=== PATIENT | male | born 1940 | race Caucasian/White ===

== ENCOUNTER 2016-07-13 18:52 | Inpatient (IN) | payer MEDICARE, OTHER ==
--- NOTE | 2016-07-13 19:24 | History and Physical Report ---
History of Present Illnes - History of Present Illness Reason for Visit: Acute renal failure/pneumonia History of Present Illness: This is a 75 year old male well known to myself who I saw last week, and he was his usual garrulous self. Over the past few days, he has begun to stop buying his lottery tickets, stopped eating, and had been somewhat agitated in occasion. He was very withdrawn and appeared significantly more pallid and mildly dyspneic than he was last week. Labs showed acute renal failure with a BUN of 126, and a creatinine of 3.68, mild anemia (it is likely worse than the 10.4 on the chart due to his dehydration). His family state that he had some dark (black) stools earlier this week, and as a result, I am holding his Xarelto which he is on for his AF due to this. I suspect that after hydration, his hemoglobin may be much lower. 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: CVA, Other (Cataracts, macular degeneration) Psych: Depression, Other (Mild dementia) Musculoskeletal: Osteoarthritis ENT: Allergic rhinitis Renal/: Chronic renal insuff, Acute renal failure Endocrine: denies: Diabetes, Hyperthyroidism, Hypothyroidism Dermatology: Eczema - Past Surgical History Past Surgical History: None - Past Social History Smoke: Quit Alcohol: None Drugs: None Lives: Detention - Health Maintenance Health Maintenance: Cholesterol Influenza Vaccine: Current for this Influenza Season Pneumonia Vaccine: Yes Resuscitation Status: NCB - Unable to Obtain History Unable to Obtain: No Review of Systems - Review of Systems Constitutional: Weakness, Malaise. negative: Fever, Chills Eyes: negative: pain, vision change ENT: negative: Ear Pain Respiratory: Cough, Shortness of Breath (chronic). negative: Hemoptysis Cardiovascular: Orthopnea, Paroxysmal Noc. Dyspnea. negative: Chest Pain Gastrointestinal: Nausea, Melena. negative: Vomiting, Abdominal Pain Genitourinary: negative: Dysuria, Frequency Musculoskeletal: negative: Neck Pain, Shoulder Pain, Arm Pain, Back Pain Skin: negative: Rash Neurological: Weakness, Confusion. negative: Numbness, Seizures - Medications/Allergies Allergies/Adverse Reactions: Allergies Allergy/AdvReac Type Severity Reaction Status Date / Time No Known Allergies Allergy Verified 07/13/16 19:41 Exam - Exam General: Oriented to Person, Oriented to Place, Discheveled, Thin. No: Oriented to Time HEENT: Atraumatic, PERRLA, EOMI, Ptosis (mild), Anicteric Sclerae. No: Mouth Mucous membr. moist/[place] (dry), Photophobia Neck: No: Stridor, Rigidity Lungs: Wheezes, Prolonged Expiration, Decreased Air Movement Cardiovascular: Irregularly Irregular Murmur: Systolic Murmur Abdomen: Normal bowel sounds, Soft, No tenderness, No hepatospenomegaly, No masses. No: Distended, Rigid, Hepatomegaly Genitourinary: No: Right Inguinal Hernia, Left Inguinal Hernia Male Genitourinary: No: Scrotal Edema Female Genitourinary: No: Other Integumentary: Normal, Pale Extremities: Other (1+ edema) Neurological: Normal speech (but slowed) Psych/Mental Status: Other (slowed mentation) - Laboratory Results Laboratory Results: Labs show a right lower lobe pneumonia, Acute renal failure, anemia as noted in HPI and a clear u/a. Assessment/Plan - Assessment/Plan (1) Right lower lobe pneumonia Status: Acute Current Visit: Yes Qualifiers: Pneumonia type: due to unspecified organism Qualified Code(s): J18.1 - Lobar pneumonia, unspecified organism Assessment: Start IV rocephin and azithromycin/nebulizer treatments (2) Acute renal failure Status: Acute Current Visit: Yes Assessment: Due to dehydration Plan: Start IV NS, monitor for any signs of fluid overload (3) Atrial fibrillation Status: Acute Current Visit: Yes Assessment: Chronic (4) GI bleed Status: Acute Current Visit: Yes Assessment: Based on history and relatively low HgB or 10.4 in a patient with significant hemoconcentration based on exam and history Plan: Recheck CBC in am [facility] all stools (5) Anticoagulation adequate with anticoagulant therapy Status: Acute Current Visit: Yes Assessment: Will hold Xarelto in the face of a suspected GI bleed (6) Congestive heart failure (CHF) Status: Acute Current Visit: Yes Assessment: Currently without evidence of fluid overload (7) Anemia Status: Acute Current Visit: Yes Qualifiers: Anemia type: iron deficiency Iron deficiency anemia type: chronic blood loss Qualified Code(s): 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
[2016-07-13] MEDS ORDERED: HYDROXYZINE HCL 25 MG TABLET PO PRN (20:04)
[2016-07-13] MEDS ORDERED: SALINE FLUSH 10 ML DISP.SYRIN IVF ONE (20:22)
[2016-07-13] MEDS ORDERED: ONDANSETRON HCL 4 MG TAB.RAPDIS PO PRN (20:26)
[2016-07-13] MEDS ORDERED: LOPERAMIDE HCL 2 MG CAPSULE PO PRN (20:26)
[2016-07-13] MEDS ORDERED: ACETAMINOPHEN 325 MG TABLET PO PRN (20:26)
[2016-07-13] MEDS ORDERED: 0.9 % SODIUM CHLORIDE 50 ML IV ONE (21:18)
[2016-07-13] MEDS ORDERED: cefTRIAXone SODIUM 1 GM VIAL ONE (21:18)
[2016-07-13] MEDS: cefTRIAXone SODIUM 1 GM in 0.9 % SODIUM CHLORIDE 50 ML IV SCH (21:22)
[2016-07-13] MEDS: 0.9 % SODIUM CHLORIDE 1,000 ML IV SCH (21:26)
[2016-07-13] MEDS ORDERED: AZITHROMYCIN 500 MG VIAL IV ONE (21:57)
[2016-07-13] MEDS ORDERED: 0.9 % SODIUM CHLORIDE 250 ML IV ONE (21:57)
[2016-07-13] MEDS: DONEPEZIL HCL 5 MG TABLET PO SCH (22:04)
[2016-07-13] MEDS: CARVEDILOL 6.25 MG TABLET PO SCH (22:04)
[2016-07-13] MEDS: SIMVASTATIN 40 MG TABLET PO SCH (22:05)
[2016-07-13] MEDS: AZITHROMYCIN 250 MG in 0.9 % SODIUM CHLORIDE 250 ML IV SCH (22:06)
[2016-07-13] MEDS: IPRATROPIUM/ALBUTEROL SULFATE 3 ML AMPUL.NEB NEB SCH (22:13)
[2016-07-13 22:14] VITALS: BMI 23.9
[2016-07-14] MEDS: IPRATROPIUM/ALBUTEROL SULFATE 3 ML AMPUL.NEB NEB SCH ×4 (00:35→18:49)
[2016-07-14] MEDS ORDERED: SALINE FLUSH 10 ML DISP.SYRIN IVF ONE (04:46)
[2016-07-14] MEDS: 0.9 % SODIUM CHLORIDE 1,000 ML IV SCH ×4 (06:24→21:53)
[2016-07-14 07:12] LABS: BASOPHILS % 0.2 (0.0-1.5); EOSINOPHILS % 0.5 % (0.0-6.8); LYMPHOCYTES # 1.1 # k/uL (0.6-4.0); MEAN CORPUSCULAR HEMOGLOBIN 26.3 pg (28.0-34.0); MONOCYTES # 0.8 # k/uL (0.0-0.9); MONOCYTES % 6.6 % (0.0-11.0); NEUTROPHILS # 9.9 # k/uL (1.4-7.7)
--- NOTE | 2016-07-14 08:26 | Inpatient Progress Note ---
Subjective - Required Recertification Statement I anticipate X number of days because-include discharge plan: 3 - Review of Systems Events since last encounter: Dylan is improved today. He ate some breakfast, and is more alert He continues to have diarrhea, however it is not black in color. He is less pale. His granddaughter spent the night with him last night. He is afebrile. His potassium has dropped a bit, his hemoglobin also dropped with hydration. General: Fatigue, Malaise, Appetite (slightly improved). Denies: Chills, Night Sweats HEENT: Denies: Head Aches Pulmonary: Cough Cardiovascular: Denies: Chest Pain, Palpitations, Orthopnea Gastrointestinal: Diarrhea. Denies: Nausea, Vomiting Genitourinary: Denies: Dysuria Musculoskeletal: Denies: Neck Pain, Shoulder Pain Neurological: Weakness, Confusion (improved slightly) Objective - Exam Vitals and I&O: Vital Signs Temp 97.7 F 07/14/16 05:49 Pulse 60 07/14/16 07:00 Resp 20 07/14/16 07:00 BP 92/37 07/14/16 05:49 Pulse Ox 98 07/14/16 05:49 Intake & Output 07/13/16 07/13/16 07/14/16 11:59 23:59 11:59 Intake Total 1250 Output Total 200 4 Balance -200 1246 Weight 72.575 kg Intake: IV 1250 Right Forearm 1250 Output: Urine 200 Stool 4 Other: Voiding Method Urinal Urinal # Voids 2 General: Oriented to Person, Oriented to Place, Cooperative, No acute distress, Discheveled HEENT: Atraumatic, PERRLA, EOMI, Ptosis. No: Mouth Mucous membr. moist/[place] ( dry) Neck: Supple, No JVD Lungs: Wheezes (scant), Prolonged Expiration Abdomen: Normal bowel sounds, Soft, No tenderness, No masses Extremities: No clubbing, No cyanosis, No edema Skin: Pale Neurological: Generalized Weakness Psych/Mental Status: Other (still sleepy) - Results Results: Laboratory Results WBC 12.30 K/ul (4.00-12.00) H 07/14/16 06:55 RBC 3.60 M/ul (3.90-5.20) L 07/14/16 06:55 Hgb 9.5 g/dL (12.0-18.0) L 07/14/16 06:55 Hct 28.8 % (37.0-53.0) L 07/14/16 06:55 MCV 79.8 fl (80.0-100.0) L 07/14/16 06:55 MCH 26.3 pg (28.0-34.0) L 07/14/16 06:55 MCHC 32.9 g/dL (30.0-36.0) 07/14/16 06:55 RDW 12.9 % (11.3-14.3) 07/14/16 06:55 Plt Count 188 K/mm3 (130-400) 07/14/16 06:55 Neut % (Auto) 80.4 % (39.0-79.0) H 07/14/16 06:55 Lymph % (Auto) 9.0 % (16.0-50.0) L 07/14/16 06:55 [place] % (Auto) 6.6 % (0.0-11.0) 07/14/16 06:55 Eos % (Auto) 0.5 % (0.0-6.8) 07/14/16 06:55 Baso % (Auto) 0.2 (0.0-1.5) 07/14/16 06:55 Neut # 9.9 # k/uL (1.4-7.7) H 07/14/16 06:55 Lymph # 1.1 # k/uL (0.6-4.0) 07/14/16 06:55 [place] # 0.8 # k/uL (0.0-0.9) 07/14/16 06:55 Eos # 0.1 # k/uL (0.0-0.6) 07/14/16 06:55 Baso # 0.0 # k/uL (0.0-0.5) 07/14/16 06:55 Reactive Lymphs % 3.2 % (0.0-5.0) 07/14/16 06:55 Reactive Lymphs # 0.4 # k/uL (0.0-0.8) 07/14/16 06:55 Sodium 139 mmol/L (136-145) 07/14/16 06:55 Potassium 3.1 mmol/L (3.5-5.0) L 07/14/16 06:55 Chloride 105 mmol/L (98-110) 07/14/16 06:55 Carbon Dioxide 27 mmol/L (20-32) 07/14/16 06:55 BUN 112 mg/dL (10-26) H 07/14/16 06:55 Creatinine 2.4 mg/dL (0.4-1.5) H 07/14/16 06:55 Estimated Creat Clear 26 07/14/16 06:55 Est GFR ( Amer) 34 (60-) L 07/14/16 06:55 Est GFR (Non-Af Amer) 28 (60-) L 07/14/16 06:55 Glucose 153 mg/dL (70-99) H 07/14/16 06:55 Calcium 8.8 mg/dL (8.5-10.5) 07/14/16 06:55 Total Bilirubin 0.3 mg/dL (0.2-1.2) 07/14/16 06:55 AST 18 U/L (0-41) 07/14/16 06:55 ALT 16 U/L (0-45) 07/14/16 06:55 Alkaline Phosphatase 49 U/L (46-116) 07/14/16 06:55 Total Protein 6.3 g/dL (6.0-8.5) 07/14/16 06:55 Albumin 3.3 g/dL (3.0-5.5) 07/14/16 06:55 Assessment/Plan - Assessment/Plan (1) Right lower lobe pneumonia Status: Acute Current Visit: Yes Qualifiers: Pneumonia type: due to unspecified organism Qualified Code(s): J18.1 - Lobar pneumonia, unspecified organism Assessment: Improved Plan: Check CXR/continue curent antibiotics/nebulizer treatments (2) Acute renal failure Status: Acute Current Visit: Yes Assessment: Improved with creatinine dropping from 3.68 to 2.4 today Plan: Continue hydration, watch for fluid overload due to history of CHF (3) Atrial fibrillation Status: Acute Current Visit: Yes Assessment: Chronic (4) GI bleed Status: Acute Current Visit: Yes Assessment: Still awaiting guiac on stools (5) Anticoagulation adequate with anticoagulant therapy Status: Acute Current Visit: Yes Assessment: Holding due to suspicion of GI bleed (6) Congestive heart failure (CHF) Status: Acute Current Visit: Yes Assessment: Compensated (7) Anemia Status: Acute Current Visit: Yes Qualifiers: Anemia type: iron deficiency Iron deficiency anemia type: chronic blood loss Qualified Code(s): D50.0 - Iron deficiency anemia secondary to blood loss (chronic) Assessment: Continue iron supplementation (8) Diarrhea Status: Acute Current Visit: Yes Assessment: Ongoing Plan: Check GI pathogen panel
[2016-07-14] MEDS: DONEPEZIL HCL 5 MG TABLET PO SCH (10:30)
[2016-07-14] MEDS: FERROUS SULFATE 325 MG TABLET PO SCH ×2 (10:30→18:55)
[2016-07-14] MEDS: CARVEDILOL 6.25 MG TABLET PO SCH ×2 (10:30→22:06)
[2016-07-14] MEDS: LISINOPRIL 5 MG TABLET PO SCH (10:31)
[2016-07-14] MEDS: POTASSIUM CHLORIDE 10 MEQ TABLET.ER PO SCH ×2 (10:31→22:06)
--- NOTE | 2016-07-14 14:36 | Diagnostic Imaging Report ---
[facility] [address] [facility].[address] [id number] Report Submission Date: Jul 14, 2016 1:20:35 PM AUTO DEALER Patient Study Name: ROBERTO MOBLEY Date: Jul 14, 2016 9:26:08 AM AUTO DEALER Modality Type: CR Gender: M Description: CHEST : 38 Institution: [facility] Physician [facility]/MED SURG EXAMINATION: Chest, two views. HISTORY: Right lower lobe pneumonia follow-up. FINDINGS: Comparison is made to exam dated 08/31/2008. The heart size is normal. There is minimal right basilar infiltrate present. There is mild blunting the right costophrenic angle suggesting small effusion. Left lung is clear. IMPRESSION: 1. Minimal right basilar infiltrate with trace right effusion Electronically signed on Jul 14, 2016 1:20:35 PM AUTO DEALER by: Tristin CARRILLO
[2016-07-14] MEDS: cefTRIAXone SODIUM 1 GM in 0.9 % SODIUM CHLORIDE 50 ML IV SCH (21:07)
[2016-07-14] MEDS: AZITHROMYCIN 250 MG in 0.9 % SODIUM CHLORIDE 250 ML IV SCH (21:53)
[2016-07-14] MEDS: SIMVASTATIN 40 MG TABLET PO SCH (22:06)
[2016-07-15] MEDS: IPRATROPIUM/ALBUTEROL SULFATE 3 ML AMPUL.NEB NEB SCH ×4 (01:09→18:13)
[2016-07-15] MEDS: 0.9 % SODIUM CHLORIDE 1,000 ML IV SCH ×5 (06:17→23:18)
[2016-07-15 07:03] LABS: MEAN CORPUSCULAR HEMOGLOBIN 25.7 pg (28.0-34.0)
[2016-07-15 07:33] LABS: eGFR (African) > 60; eGFR (Non-African) 57
--- NOTE | 2016-07-15 08:00 | Inpatient Progress Note ---
Subjective - Required Recertification Statement I anticipate X number of days because-include discharge plan: 2 - Review of Systems Events since last encounter: Dylan has continued to improve every day. He continues to have diarrhea. He is experiencing no evidence of fluid overload. He is more alert and oriented and is up and eating breakfast this morning. Gastrointestinal panel and guiac tests are still pending. General: Denies: Chills, Night Sweats HEENT: Denies: Head Aches Pulmonary: Dyspnea, Cough Cardiovascular: Denies: Chest Pain, Palpitations Gastrointestinal: Diarrhea. Denies: Nausea, Vomiting Genitourinary: Denies: Dysuria, Frequency Musculoskeletal: Denies: Neck Pain Neurological: Weakness, Confusion (improved) Objective - Exam Vitals and I&O: Vital Signs Temp 97.6 F 07/15/16 06:00 Pulse 52 L 07/15/16 06:00 Resp 20 07/15/16 06:00 BP 95/41 07/15/16 06:00 Pulse Ox 99 07/15/16 06:00 Intake & Output 07/14/16 07/14/16 07/15/16 11:59 23:59 11:59 Intake Total 1370 1400 Output Total 4 800 Balance 1366 600 Weight 72.575 kg Intake: IV 1250 Right Forearm 1250 Oral 120 1400 Output: Urine 800 Stool 4 Other: Voiding Method Urinal Urinal # Voids 2 2 2 # Bowel Movements 3 General: Alert, Oriented to Person, Oriented to Place, Thin HEENT: Atraumatic, PERRLA, EOMI Neck: Supple Lungs: Clear to auscultation, Decreased Air Movement Cardiovascular: Irregularly Irregular Abdomen: Normal bowel sounds, Soft, No tenderness Extremities: No clubbing, No cyanosis, No edema Skin: Normal, [place] Neurological: Normal gait Psych/Mental Status: Mental status NL (at baseline) - Results Results: Laboratory Results WBC 13.20 K/ul (4.00-12.00) H 07/15/16 06:45 RBC 3.33 M/ul (3.90-5.20) L 07/15/16 06:45 Hgb 8.6 g/dL (12.0-18.0) L 07/15/16 06:45 Hct 27.3 % (37.0-53.0) L 07/15/16 06:45 MCV 82.1 fl (80.0-100.0) 07/15/16 06:45 MCH 25.7 pg (28.0-34.0) L 07/15/16 06:45 MCHC 31.3 g/dL (30.0-36.0) 07/15/16 06:45 RDW 13.0 % (11.3-14.3) 07/15/16 06:45 Plt Count 184 K/mm3 (130-400) 07/15/16 06:45 Neut % (Auto) 80.4 % (39.0-79.0) H 07/14/16 06:55 Lymph % (Auto) 9.0 % (16.0-50.0) L 07/14/16 06:55 [place] % (Auto) 6.6 % (0.0-11.0) 07/14/16 06:55 Eos % (Auto) 0.5 % (0.0-6.8) 07/14/16 06:55 Baso % (Auto) 0.2 (0.0-1.5) 07/14/16 06:55 Neut # 9.9 # k/uL (1.4-7.7) H 07/14/16 06:55 Lymph # 1.1 # k/uL (0.6-4.0) 07/14/16 06:55 [place] # 0.8 # k/uL (0.0-0.9) 07/14/16 06:55 Eos # 0.1 # k/uL (0.0-0.6) 07/14/16 06:55 Baso # 0.0 # k/uL (0.0-0.5) 07/14/16 06:55 Reactive Lymphs % 3.2 % (0.0-5.0) 07/14/16 06:55 Reactive Lymphs # 0.4 # k/uL (0.0-0.8) 07/14/16 06:55 Sodium 145 mmol/L (136-145) 07/15/16 06:45 Potassium 3.4 mmol/L (3.5-5.0) L 07/15/16 06:45 Chloride 110 mmol/L (98-110) 07/15/16 06:45 Carbon Dioxide 28 mmol/L (20-32) 07/15/16 06:45 BUN 66 mg/dL (10-26) H 07/15/16 06:45 Creatinine 1.3 mg/dL (0.4-1.5) 07/15/16 06:45 Estimated Creat Clear 49 07/15/16 06:45 Est GFR ( Amer) > 60 (60-) 07/15/16 06:45 Est GFR (Non-Af Amer) 57 (60-) L 07/15/16 06:45 Glucose 112 mg/dL (70-99) H 07/15/16 06:45 Calcium 9.0 mg/dL (8.5-10.5) 07/15/16 06:45 Total Bilirubin 0.3 mg/dL (0.2-1.2) 07/14/16 06:55 AST 18 U/L (0-41) 07/14/16 06:55 ALT 16 U/L (0-45) 07/14/16 06:55 Alkaline Phosphatase 49 U/L (46-116) 07/14/16 06:55 Total Protein 6.3 g/dL (6.0-8.5) 07/14/16 06:55 Albumin 3.3 g/dL (3.0-5.5) 07/14/16 06:55 Assessment/Plan - Assessment/Plan (1) Right lower lobe pneumonia Status: Acute Current Visit: Yes Qualifiers: Pneumonia type: due to unspecified organism Qualified Code(s): J18.1 - Lobar pneumonia, unspecified organism Assessment: improved Plan: Continue current treatment (2) Acute renal failure Status: Acute Current Visit: Yes Assessment: improved with BUN now 66/creatinine 1.3 (3) Atrial fibrillation Status: Acute Current Visit: Yes Assessment: Chronic (4) GI bleed Status: Acute Current Visit: Yes Assessment: holding Xarelto currently (5) Anticoagulation adequate with anticoagulant therapy Status: Acute Current Visit: Yes Assessment: holding due to suspected GI bleed Plan: Nursing to try to get gastrointestinal panel (6) Congestive heart failure (CHF) Status: Acute Current Visit: Yes Assessment: Current well compensated Plan: Holding diuretic due to dehydration (7) Anemia Status: Acute Current Visit: Yes Qualifiers: Anemia type: iron deficiency Iron deficiency anemia type: chronic blood loss Qualified Code(s): D50.0 - Iron deficiency anemia secondary to blood loss (chronic) Assessment: Worsened with hydration Plan: Will check CBC in the am, he may need transfusion (8) Diarrhea Status: Acute Current Visit: Yes Assessment: Gastointestinal pathogen panel pending
[2016-07-15] MEDS: CARVEDILOL 6.25 MG TABLET PO SCH ×2 (09:47→20:43)
[2016-07-15] MEDS: POTASSIUM CHLORIDE 10 MEQ TABLET.ER PO SCH ×2 (09:47→20:43)
[2016-07-15] MEDS: LISINOPRIL 5 MG TABLET PO SCH (09:47)
[2016-07-15] MEDS: FERROUS SULFATE 325 MG TABLET PO SCH ×2 (09:49→17:44)
[2016-07-15] MEDS ORDERED: SALINE FLUSH 10 ML DISP.SYRIN IVF ONE ×2 (10:29→13:14)
[2016-07-15] MEDS: SIMVASTATIN 40 MG TABLET PO SCH (20:43)
[2016-07-15] MEDS: DONEPEZIL HCL 5 MG TABLET PO SCH (20:43)
[2016-07-15] MEDS: cefTRIAXone SODIUM 1 GM in 0.9 % SODIUM CHLORIDE 50 ML IV SCH (20:44)
[2016-07-15] MEDS: AZITHROMYCIN 250 MG in 0.9 % SODIUM CHLORIDE 250 ML IV SCH (21:57)
[2016-07-16] MEDS: IPRATROPIUM/ALBUTEROL SULFATE 3 ML AMPUL.NEB NEB SCH ×4 (06:17→18:02)
[2016-07-16 06:33] LABS: MEAN CORPUSCULAR HEMOGLOBIN 25.8 pg (28.0-34.0)
[2016-07-16] MEDS: 0.9 % SODIUM CHLORIDE 1,000 ML IV SCH ×3 (06:42→22:47)
[2016-07-16 07:26] LABS: eGFR (African) > 60; eGFR (Non-African) > 60
[2016-07-16] MEDS: CARVEDILOL 6.25 MG TABLET PO SCH ×2 (08:52→21:06)
[2016-07-16] MEDS: LISINOPRIL 5 MG TABLET PO SCH (08:52)
[2016-07-16] MEDS: POTASSIUM CHLORIDE 10 MEQ TABLET.ER PO SCH ×2 (08:52→21:06)
[2016-07-16] MEDS: FERROUS SULFATE 325 MG TABLET PO SCH ×2 (08:53→17:52)
--- NOTE | 2016-07-16 11:02 | Inpatient Progress Note ---
Subjective - Required Recertification Statement I anticipate X number of days because-include discharge plan: 2 - Review of Systems Events since last encounter: Dylan is breathing well. He has no new c/o. His renal labs continue to recover. I decreased his fluids to TKO last night as he was starting to get some pulmonary congestion. General: Denies: Chills HEENT: Denies: Head Aches, Visual Changes Pulmonary: Dyspnea. Denies: Cough Cardiovascular: Denies: Chest Pain Gastrointestinal: Diarrhea. Denies: Nausea, Vomiting Genitourinary: Denies: Dysuria Musculoskeletal: Denies: Neck Pain, Shoulder Pain Neurological: Weakness, Confusion Objective - Exam Vitals and I&O: Vital Signs Temp 97.7 F 07/16/16 05:44 Pulse 69 07/16/16 07:00 Resp 16 07/16/16 07:00 BP 98/51 07/16/16 05:44 Pulse Ox 97 07/16/16 05:44 Intake & Output 07/15/16 07/15/16 07/16/16 11:59 23:59 11:59 Intake Total 740 1230 Output Total 225 400 Balance 740 1005 -400 Weight 72.575 kg Intake: IV 500 750 Right Antecubital 500 750 Oral 240 480 Output: Urine 225 400 Other: Voiding Method Urinal Urinal Urinal # Voids 2 2 # Bowel Movements 1 General: Alert, Oriented to Person, Oriented to Place HEENT: Atraumatic, PERRLA, EOMI Neck: Supple, No JVD Lungs: Wheezes, Prolonged Expiration, Decreased Air Movement Cardiovascular: Irregularly Irregular Abdomen: Normal bowel sounds, Soft, No tenderness Extremities: No clubbing, No cyanosis Skin: Normal, Pale Neurological: Normal speech Psych/Mental Status: Other (at baseline) - Results Results: Laboratory Results WBC 12.50 K/ul (4.00-12.00) H 07/16/16 06:15 RBC 3.59 M/ul (3.90-5.20) L 07/16/16 06:15 Hgb 9.3 g/dL (12.0-18.0) L 07/16/16 06:15 Hct 30.0 % (37.0-53.0) L 07/16/16 06:15 MCV 83.5 fl (80.0-100.0) 07/16/16 06:15 MCH 25.8 pg (28.0-34.0) L 07/16/16 06:15 MCHC 30.9 g/dL (30.0-36.0) 07/16/16 06:15 RDW 13.1 % (11.3-14.3) 07/16/16 06:15 Plt Count 175 K/mm3 (130-400) 07/16/16 06:15 Neut % (Auto) 80.4 % (39.0-79.0) H 07/14/16 06:55 Lymph % (Auto) 9.0 % (16.0-50.0) L 07/14/16 06:55 [place] % (Auto) 6.6 % (0.0-11.0) 07/14/16 06:55 Eos % (Auto) 0.5 % (0.0-6.8) 07/14/16 06:55 Baso % (Auto) 0.2 (0.0-1.5) 07/14/16 06:55 Neut # 9.9 # k/uL (1.4-7.7) H 07/14/16 06:55 Lymph # 1.1 # k/uL (0.6-4.0) 07/14/16 06:55 [place] # 0.8 # k/uL (0.0-0.9) 07/14/16 06:55 Eos # 0.1 # k/uL (0.0-0.6) 07/14/16 06:55 Baso # 0.0 # k/uL (0.0-0.5) 07/14/16 06:55 Reactive Lymphs % 3.2 % (0.0-5.0) 07/14/16 06:55 Reactive Lymphs # 0.4 # k/uL (0.0-0.8) 07/14/16 06:55 Sodium 143 mmol/L (136-145) 07/16/16 06:15 Potassium 3.7 mmol/L (3.5-5.0) 07/16/16 06:15 Chloride 111 mmol/L (98-110) H 07/16/16 06:15 Carbon Dioxide 29 mmol/L (20-32) 07/16/16 06:15 BUN 40 mg/dL (10-26) H 07/16/16 06:15 Creatinine 1.0 mg/dL (0.4-1.5) 07/16/16 06:15 Estimated Creat Clear 64 07/16/16 06:15 Est GFR ( Amer) > 60 (60-) 07/16/16 06:15 Est GFR (Non-Af Amer) > 60 (60-) 07/16/16 06:15 Glucose 110 mg/dL (70-99) H 07/16/16 06:15 Calcium 8.6 mg/dL (8.5-10.5) 07/16/16 06:15 Total Bilirubin 0.3 mg/dL (0.2-1.2) 07/14/16 06:55 AST 18 U/L (0-41) 07/14/16 06:55 ALT 16 U/L (0-45) 07/14/16 06:55 Alkaline Phosphatase 49 U/L (46-116) 07/14/16 06:55 Total Protein 6.3 g/dL (6.0-8.5) 07/14/16 06:55 Albumin 3.3 g/dL (3.0-5.5) 07/14/16 06:55 Stool Guaiac Test Negative (NEGATIVE) 07/15/16 18:35 Assessment/Plan - Assessment/Plan (1) Right lower lobe pneumonia Status: Acute Current Visit: Yes Qualifiers: Pneumonia type: due to unspecified organism Qualified Code(s): J18.1 - Lobar pneumonia, unspecified organism Plan: Improve (2) Acute renal failure Status: Acute Current Visit: Yes Plan: Improved (3) Atrial fibrillation Status: Acute Current Visit: Yes Assessment: Continue to hold Xarelto (4) GI bleed Status: Acute Current Visit: Yes Assessment: Continue to guiac stools (5) Anticoagulation adequate with anticoagulant therapy Status: Acute Current Visit: Yes Assessment: Hold Xarelto (6) Congestive heart failure (CHF) Status: Acute Current Visit: Yes Assessment: Still holding diuretics due to dehydration (7) Anemia Status: Acute Current Visit: Yes Qualifiers: Anemia type: iron deficiency Iron deficiency anemia type: chronic blood loss Qualified Code(s): D50.0 - Iron deficiency anemia secondary to blood loss (chronic) Assessment: HgB is improved today (8) Diarrhea Status: Acute Current Visit: Yes Assessment: Awaiting gastrointestinal pathogen panel
[2016-07-16] MEDS ORDERED: NYSTATIN POWDER BOTTLE TP ONE (12:49)
[2016-07-16] MEDS ORDERED: NYSTATIN CREAM 100,000 UNIT/GM 15GM TP SCH (13:00)
[2016-07-16] MEDS: NYSTATIN POWDER BOTTLE TP SCH ×2 (17:53→21:07)
[2016-07-16] MEDS: SIMVASTATIN 40 MG TABLET PO SCH (21:06)
[2016-07-16] MEDS: DONEPEZIL HCL 5 MG TABLET PO SCH (21:06)
[2016-07-16] MEDS: cefTRIAXone SODIUM 1 GM in 0.9 % SODIUM CHLORIDE 50 ML IV SCH (21:09)
[2016-07-16] MEDS: AZITHROMYCIN 250 MG in 0.9 % SODIUM CHLORIDE 250 ML IV SCH (22:42)
[2016-07-17] MEDS: IPRATROPIUM/ALBUTEROL SULFATE 3 ML AMPUL.NEB NEB SCH ×4 (03:16→18:00)
[2016-07-17 07:07] LABS: MEAN CORPUSCULAR HEMOGLOBIN 26.1 pg (28.0-34.0)
[2016-07-17 07:19] LABS: eGFR (African) > 60; eGFR (Non-African) > 60
[2016-07-17] MEDS ORDERED: 0.9 % SODIUM CHLORIDE 500 ML IV ONE (10:47)
[2016-07-17] MEDS: CARVEDILOL 6.25 MG TABLET PO SCH ×2 (10:49→21:14)
[2016-07-17] MEDS: LISINOPRIL 5 MG TABLET PO SCH (10:50)
[2016-07-17] MEDS: POTASSIUM CHLORIDE 10 MEQ TABLET.ER PO SCH ×2 (10:52→21:20)
[2016-07-17] MEDS: NYSTATIN POWDER BOTTLE TP SCH ×4 (10:52→21:21)
[2016-07-17 11:41] LABS: ADENOVIRUS F 40/41 Not Detected (Not Detected); ASTROVIRUS Not Detected (Not Detected); C. DIFFICILE (TOXIN A/B) Not Detected (Not Detected); CRYPTOSPORIDIUM Not Detected (Not Detected); CYCLOSPORA CAYETANENSIS Not Detected (Not Detected); ENTAMOEBA HISTOLYTICA Not Detected (Not Detected); GIARDIA LAMBLIA Not Detected (Not Detected); ROTAVIRUS A Not Detected (Not Detected); SAPOVIRUS Not Detected (Not Detected); VIBRIO CHOLERAE Not Detected (Not Detected)
[2016-07-17] MEDS: FERROUS SULFATE 325 MG TABLET PO SCH ×2 (11:47→18:51)
--- NOTE | 2016-07-17 12:44 | Diagnostic Imaging Report ---
[facility] [id number] [facility].[address] [address] Report Submission Date: Jul 17, 2016 12:34:49 PM OB/GYN PHYSICIAN Patient Study Name: ROBERTO MOBLEY Date: Jul 17, 2016 12:15:22 PM OB/GYN PHYSICIAN Modality Type: CR Gender: M Description: CHEST : 38 Institution: [facility] Physician: SILVANO EMERSON Portable chest History: Pneumonia Findings: Mild bilateral diffuse interstitial infiltrate or edema, small pleural effusions, and pulmonary vascular congestion have developed since the prior exam. Heart size is upper normal. Atherosclerotic calcifications are observed. Impression: Interval development of congestive heart failure. Electronically signed on Jul 17, 2016 12:34:49 PM OB/GYN PHYSICIAN by: Kevin CARRILLO
[2016-07-17] MEDS: 0.9 % SODIUM CHLORIDE 1,000 ML IV SCH ×2 (14:15→18:15)
--- NOTE | 2016-07-17 16:51 | Inpatient Progress Note ---
Subjective - Required Recertification Statement I anticipate X number of days because-include discharge plan: 2 - Review of Systems Events since last encounter: Dylan is eating better. He is breathing well. We still have not received his gastrointestinal panel back. His guiacs have been negative so far. General: Denies: Chills, Night Sweats HEENT: Denies: Head Aches Pulmonary: Dyspnea. Denies: Cough Cardiovascular: Denies: Chest Pain, Palpitations Gastrointestinal: Diarrhea. Denies: Nausea Genitourinary: Denies: Dysuria Musculoskeletal: Denies: Neck Pain, Shoulder Pain Neurological: Weakness. Denies: Confusion Objective - Exam Vitals and I&O: Vital Signs Temp 97.9 F 07/17/16 13:29 Pulse 75 07/17/16 13:29 Resp 20 07/17/16 13:29 BP 104/57 07/17/16 13:29 Pulse Ox 97 07/17/16 13:29 Intake & Output 07/16/16 07/17/16 07/17/16 23:59 11:59 23:59 Intake Total 840 240 400 Output Total 255 Balance 840 240 145 Intake: Oral 840 240 400 Output: Urine 255 Other: Voiding Method Urinal # Voids 4 # Bowel Movements 2 2 General: Alert, Oriented to Person HEENT: Atraumatic, PERRLA, Mouth Mucous membr. moist/Queets Neck: Supple, No JVD Lungs: Wheezes (scaant), Decreased Air Movement Cardiovascular: Irregularly Irregular Abdomen: Normal bowel sounds, Soft, No tenderness, No hepatospenomegaly Extremities: No clubbing, No cyanosis, No edema Skin: Normal, Pale Neurological: Normal speech Psych/Mental Status: Mental status NL - Results Results: Laboratory Results WBC 12.70 K/ul (4.00-12.00) H 07/17/16 06:25 RBC 3.48 M/ul (3.90-5.20) L 07/17/16 06:25 Hgb 9.1 g/dL (12.0-18.0) L 07/17/16 06:25 Hct 29.1 % (37.0-53.0) L 07/17/16 06:25 MCV 83.7 fl (80.0-100.0) 07/17/16 06:25 MCH 26.1 pg (28.0-34.0) L 07/17/16 06:25 MCHC 31.2 g/dL (30.0-36.0) 07/17/16 06:25 RDW 13.0 % (11.3-14.3) 07/17/16 06:25 Plt Count 169 K/mm3 (130-400) 07/17/16 06:25 Neut % (Auto) 80.4 % (39.0-79.0) H 07/14/16 06:55 Lymph % (Auto) 9.0 % (16.0-50.0) L 07/14/16 06:55 [place] % (Auto) 6.6 % (0.0-11.0) 07/14/16 06:55 Eos % (Auto) 0.5 % (0.0-6.8) 07/14/16 06:55 Baso % (Auto) 0.2 (0.0-1.5) 07/14/16 06:55 Neut # 9.9 # k/uL (1.4-7.7) H 07/14/16 06:55 Lymph # 1.1 # k/uL (0.6-4.0) 07/14/16 06:55 [place] # 0.8 # k/uL (0.0-0.9) 07/14/16 06:55 Eos # 0.1 # k/uL (0.0-0.6) 07/14/16 06:55 Baso # 0.0 # k/uL (0.0-0.5) 07/14/16 06:55 Reactive Lymphs % 3.2 % (0.0-5.0) 07/14/16 06:55 Reactive Lymphs # 0.4 # k/uL (0.0-0.8) 07/14/16 06:55 Sodium 141 mmol/L (136-145) 07/17/16 06:25 Potassium 3.1 mmol/L (3.5-5.0) L 07/17/16 06:25 Chloride 114 mmol/L (98-110) H 07/17/16 06:25 Carbon Dioxide 25 mmol/L (20-32) 07/17/16 06:25 BUN 19 mg/dL (10-26) 07/17/16 06:25 Creatinine 0.8 mg/dL (0.4-1.5) 07/17/16 06:25 Estimated Creat Clear 80 07/17/16 06:25 Est GFR ( Amer) > 60 (60-) 07/17/16 06:25 Est GFR (Non-Af Amer) > 60 (60-) 07/17/16 06:25 Glucose 108 mg/dL (70-99) H 07/17/16 06:25 Calcium 8.5 mg/dL (8.5-10.5) 07/17/16 06:25 Total Bilirubin 0.3 mg/dL (0.2-1.2) 07/14/16 06:55 AST 18 U/L (0-41) 07/14/16 06:55 ALT 16 U/L (0-45) 07/14/16 06:55 Alkaline Phosphatase 49 U/L (46-116) 07/14/16 06:55 Total Protein 6.3 g/dL (6.0-8.5) 07/14/16 06:55 Albumin 3.3 g/dL (3.0-5.5) 07/14/16 06:55 Stool Guaiac Test Negative (NEGATIVE) 07/15/16 18:35 Stl C. cayetanensis PCR Not detected (Not Detected) 07/16/16 09:25 Stool Rotavirus (PCR) Not detected (Not Detected) 07/16/16 09:25 Stool Astrovirus (PCR) Not detected (Not Detected) 07/16/16 09:25 Stool Campylobacter PCR Not detected (Not Detected) 07/16/16 09:25 Stool Cryptosporidium PCR Not detected (Not Detected) 07/16/16 09:25 Stl E.coli Shiga Toxins Not detected (Not Detected) 07/16/16 09:25 Stool E.coli 0157 Cult Not detected (Not Detected) 07/16/16 09:25 Stl Aggregat E Coli PCR Not detected (Not Detected) 07/16/16 09:25 Stl E. histolytica PCR Not detected (Not Detected) 07/16/16 09:25 Stool Giardia Lamblia PCR Not detected (Not Detected) 07/16/16 09:25 Stool Sapovirus (PCR) Not detected (Not Detected) 07/16/16 09:25 Stl P. shigelloides PCR Not detected (Not Detected) 07/16/16 09:25 St Y.enterocolitica PCR Not detected (Not Detected) 07/16/16 09:25 Stool Vibrio (PCR) Not detected (Not Detected) 07/16/16 09:25 Stl Vibrio cholerae PCR Not detected (Not Detected) 07/16/16 09:25 Stl Norovirus GI/GII PCR Not detected (Not Detected) 07/16/16 09:25 Adenovirus (PCR) Not detected (Not Detected) 07/16/16 09:25 C. diff Tox Assay (Ref) Not detected (Not Detected) 07/16/16 09:25 E. coli (PCR) Not detected (Not Detected) 07/16/16 09:25 Escherichia coli 0157 Not detected (Not Detected) 07/16/16 09:25 Salmonella (PCR) Not detected (Not Detected) 07/16/16 09:25 Assessment/Plan - Assessment/Plan (1) Right lower lobe pneumonia Status: Acute Current Visit: Yes Qualifiers: Pneumonia type: due to unspecified organism Qualified Code(s): J18.1 - Lobar pneumonia, unspecified organism Assessment: Improved Plan: Continue current antibiotics/treatment (2) Acute renal failure Status: Acute Current Visit: Yes Assessment: Resolving with fluid resuscitation (3) Atrial fibrillation Status: Acute Current Visit: Yes Assessment: Chronic (4) GI bleed Status: Acute Current Visit: Yes Assessment: Guaiacs negative, hemoglobin has dropped slightly (5) Anticoagulation adequate with anticoagulant therapy Status: Acute Current Visit: Yes Assessment: holding Xarelto due to suspicion of GI bleed (6) Congestive heart failure (CHF) Status: Acute Current Visit: Yes Assessment: Compensated (7) Anemia Status: Acute Current Visit: Yes Qualifiers: Anemia type: iron deficiency Iron deficiency anemia type: chronic blood 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
[2016-07-17] MEDS ORDERED: 0.9 % SODIUM CHLORIDE 250 ML IV ONE (20:27)
[2016-07-17] MEDS ORDERED: AZITHROMYCIN 500 MG VIAL IV ONE (20:37)
[2016-07-17] MEDS: cefTRIAXone SODIUM 1 GM in 0.9 % SODIUM CHLORIDE 50 ML IV SCH (21:14)
[2016-07-17] MEDS: DONEPEZIL HCL 5 MG TABLET PO SCH (21:15)
[2016-07-17] MEDS ORDERED: POTASSIUM CHLORIDE 20 MEQ TABLET.ER ONE (21:17)
[2016-07-17] MEDS ORDERED: POTASSIUM CHLORIDE 10 MEQ TABLET.ER PO ONE (21:19)
[2016-07-17] MEDS: SIMVASTATIN 40 MG TABLET PO SCH (21:20)
[2016-07-17] MEDS: AZITHROMYCIN 250 MG in 0.9 % SODIUM CHLORIDE 250 ML IV SCH (22:23)
[2016-07-18] MEDS: IPRATROPIUM/ALBUTEROL SULFATE 3 ML AMPUL.NEB NEB SCH ×4 (01:09→16:16)
[2016-07-18] MEDS: 0.9 % SODIUM CHLORIDE 1,000 ML IV SCH ×3 (01:10→18:44)
[2016-07-18] MEDS ORDERED: POTASSIUM CHLORIDE 20 MEQ TABLET.ER ONE (03:42)
[2016-07-18 07:22] LABS: eGFR (African) > 60; eGFR (Non-African) > 60
[2016-07-18] MEDS ORDERED: FUROSEMIDE 20 MG/2 ML VIAL IVP ONE (08:37)
--- NOTE | 2016-07-18 08:41 | Inpatient Progress Note ---
Subjective - Required Recertification Statement I anticipate X number of days because-include discharge plan: 1 - Review of Systems Events since last encounter: Dylan is a little congested this morning. He had a chest x ray done yesterday, which showed a new developement of CHF, and his BUN and creatinine is now normal. He is feeling well, and is eating between 2/3 and all of his meals. He is feeling stronger, however he is now significantly hypotensive. He is afebrile, and his white count has normalized. His HgB, however is still low, but not low enough to transfuse. Objective - Exam Vitals and I&O: Vital Signs Temp 98.5 F 07/18/16 06:00 Pulse 63 07/18/16 06:00 Resp 18 07/18/16 06:00 BP 94/45 07/18/16 06:00 Pulse Ox 97 07/18/16 06:00 Intake & Output 07/17/16 07/17/16 07/18/16 11:59 23:59 11:59 Intake Total 240 400 360 Output Total 255 Balance 240 145 360 Intake: IV 360 Right Antecubital 360 Oral 240 400 Output: Urine 255 Other: Voiding Method Urinal Urinal # Voids 4 3 # Bowel Movements 2 2 General: Alert, Oriented to Person HEENT: Atraumatic, PERRLA Neck: Supple Lungs: Wheezes, Prolonged Expiration Cardiovascular: Irregularly Irregular Abdomen: Normal bowel sounds, Soft, No tenderness Extremities: No clubbing, No cyanosis, Other (open wound on left heel is not infected) Skin: Normal, [place], Warm Neurological: Normal speech Psych/Mental Status: Mental status NL - Results Results: Laboratory Results WBC 7.90 K/ul (4.00-12.00) 07/18/16 06:25 RBC 3.32 M/ul (3.90-5.20) L 07/18/16 06:25 Hgb 8.6 g/dL (12.0-18.0) L 07/18/16 06:25 Hct 27.2 % (37.0-53.0) L 07/18/16 06:25 MCV 82.0 fl (80.0-100.0) 07/18/16 06:25 MCH 26.0 pg (28.0-34.0) L 07/18/16 06:25 MCHC 31.7 g/dL (30.0-36.0) 07/18/16 06:25 RDW 13.4 % (11.3-14.3) 07/18/16 06:25 Plt Count 164 K/mm3 (130-400) 07/18/16 06:25 Neut % (Auto) 80.4 % (39.0-79.0) H 07/14/16 06:55 Lymph % (Auto) 9.0 % (16.0-50.0) L 07/14/16 06:55 [place] % (Auto) 6.6 % (0.0-11.0) 07/14/16 06:55 Eos % (Auto) 0.5 % (0.0-6.8) 07/14/16 06:55 Baso % (Auto) 0.2 (0.0-1.5) 07/14/16 06:55 Neut # 9.9 # k/uL (1.4-7.7) H 07/14/16 06:55 Lymph # 1.1 # k/uL (0.6-4.0) 07/14/16 06:55 [place] # 0.8 # k/uL (0.0-0.9) 07/14/16 06:55 Eos # 0.1 # k/uL (0.0-0.6) 07/14/16 06:55 Baso # 0.0 # k/uL (0.0-0.5) 07/14/16 06:55 Reactive Lymphs % 3.2 % (0.0-5.0) 07/14/16 06:55 Reactive Lymphs # 0.4 # k/uL (0.0-0.8) 07/14/16 06:55 Sodium 142 mmol/L (136-145) 07/18/16 06:25 Potassium 3.6 mmol/L (3.5-5.0) 07/18/16 06:25 Chloride 112 mmol/L (98-110) H 07/18/16 06:25 Carbon Dioxide 26 mmol/L (20-32) 07/18/16 06:25 BUN 20 mg/dL (10-26) 07/18/16 06:25 Creatinine 0.8 mg/dL (0.4-1.5) 07/18/16 06:25 Estimated Creat Clear 80 07/18/16 06:25 Est GFR ( Amer) > 60 (60-) 07/18/16 06:25 Est GFR (Non-Af Amer) > 60 (60-) 07/18/16 06:25 Glucose 97 mg/dL (70-99) 07/18/16 06:25 Calcium 8.2 mg/dL (8.5-10.5) L 07/18/16 06:25 Total Bilirubin 0.3 mg/dL (0.2-1.2) 07/14/16 06:55 AST 18 U/L (0-41) 07/14/16 06:55 ALT 16 U/L (0-45) 07/14/16 06:55 Alkaline Phosphatase 49 U/L (46-116) 07/14/16 06:55 NT-Pro-B Natriuret Pep 43510.2 pg/mL (15.0-450.0) H 07/17/16 06:25 Total Protein 6.3 g/dL (6.0-8.5) 07/14/16 06:55 Albumin 3.3 g/dL (3.0-5.5) 07/14/16 06:55 Stool Guaiac Test Negative (NEGATIVE) 07/15/16 18:35 Stl C. cayetanensis PCR Not detected (Not Detected) 07/16/16 09:25 Stool Rotavirus (PCR) Not detected (Not Detected) 07/16/16 09:25 Stool Astrovirus (PCR) Not detected (Not Detected) 07/16/16 09:25 Stool Campylobacter PCR Not detected (Not Detected) 07/16/16 09:25 Stool Cryptosporidium PCR Not detected (Not Detected) 07/16/16 09:25 Stl E.coli Shiga Toxins Not detected (Not Detected) 07/16/16 09:25 Stool E.coli 0157 Cult Not detected (Not Detected) 07/16/16 09:25 Stl Aggregat E Coli PCR Not detected (Not Detected) 07/16/16 09:25 Stl E. histolytica PCR Not detected (Not Detected) 07/16/16 09:25 Stool Giardia Lamblia PCR Not detected (Not Detected) 07/16/16 09:25 Stool Sapovirus (PCR) Not detected (Not Detected) 07/16/16 09:25 Stl P. shigelloides PCR Not detected (Not Detected) 07/16/16 09:25 St Y.enterocolitica PCR Not detected (Not Detected) 07/16/16 09:25 Stool Vibrio (PCR) Not detected (Not Detected) 07/16/16 09:25 Stl Vibrio cholerae PCR Not detected (Not Detected) 07/16/16 09:25 Stl Norovirus GI/GII PCR Not detected (Not Detected) 07/16/16 09:25 Adenovirus (PCR) Not detected (Not Detected) 07/16/16 09:25 C. diff Tox Assay (Ref) Not detected (Not Detected) 07/16/16 09:25 E. coli (PCR) Not detected (Not Detected) 07/16/16 09:25 Escherichia coli 0157 Not detected (Not Detected) 07/16/16 09:25 Salmonella (PCR) Not detected (Not Detected) 07/16/16 09:25 Assessment/Plan - Assessment/Plan (1) Right lower lobe pneumonia Status: Acute Current Visit: Yes Qualifiers: Pneumonia type: due to unspecified organism Qualified Code(s): J18.1 - Lobar pneumonia, unspecified organism Assessment: Continue current meds (2) Acute renal failure Status: Acute Current Visit: Yes Assessment: Improved (3) Atrial fibrillation Status: Acute Current Visit: Yes Assessment: Chronic (4) GI bleed Status: Acute Current Visit: Yes Assessment: Still awaiting guiac of stools (5) Anticoagulation adequate with anticoagulant therapy Status: Acute Current Visit: Yes Assessment: holding Xarelto due to suspicion of GI bleed (6) Congestive heart failure (CHF) Status: Acute Current Visit: Yes Assessment: With slight decompensation Plan: Diurese cautiously due to hypotension (7) Anemia Status: Acute Current Visit: Yes Qualifiers: Anemia type: iron deficiency 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
[2016-07-18] MEDS: CARVEDILOL 6.25 MG TABLET PO SCH ×2 (09:34→21:19)
[2016-07-18] MEDS: LISINOPRIL 5 MG TABLET PO SCH (09:34)
[2016-07-18] MEDS ORDERED: POTASSIUM CHLORIDE 10 MEQ TABLET.ER PO ONE ×2 (10:13→10:15)
[2016-07-18] MEDS: POTASSIUM CHLORIDE 10 MEQ TABLET.ER PO SCH (10:32)
[2016-07-18] MEDS: NYSTATIN POWDER BOTTLE TP SCH ×4 (11:06→21:20)
[2016-07-18] MEDS: FERROUS SULFATE 325 MG TABLET PO SCH ×2 (13:18→18:03)
[2016-07-18] MEDS: cefTRIAXone SODIUM 1 GM in 0.9 % SODIUM CHLORIDE 50 ML IV SCH (20:24)
[2016-07-18] MEDS ORDERED: SALINE FLUSH 10 ML DISP.SYRIN IVF ONE ×2 (20:46→22:29)
[2016-07-18] MEDS: DONEPEZIL HCL 5 MG TABLET PO SCH (21:19)
[2016-07-18] MEDS: POTASSIUM CHLORIDE 20 MEQ TABLET.ER PO SCH (21:20)
[2016-07-18] MEDS: SIMVASTATIN 40 MG TABLET PO SCH (21:20)
[2016-07-18] MEDS: AZITHROMYCIN 250 MG in 0.9 % SODIUM CHLORIDE 250 ML IV SCH (21:27)
[2016-07-19] MEDS: IPRATROPIUM/ALBUTEROL SULFATE 3 ML AMPUL.NEB NEB SCH ×2 (03:19→05:38)
[2016-07-19] MEDS: 0.9 % SODIUM CHLORIDE 1,000 ML IV SCH ×3 (03:21→11:24)
[2016-07-19] MEDS: NYSTATIN POWDER BOTTLE TP SCH (08:22)
[2016-07-19] MEDS: LISINOPRIL 5 MG TABLET PO SCH (08:22)
[2016-07-19] MEDS: CARVEDILOL 6.25 MG TABLET PO SCH (08:22)
[2016-07-19] MEDS: POTASSIUM CHLORIDE 20 MEQ TABLET.ER PO SCH (08:22)
[2016-07-19 08:48] VITALS: BP 83/45
[2016-07-19] MEDS ORDERED: INFLUENZA VACCINE/PF 60 MCG/0.5 ML DISP.SYRIN IM ONE (11:11)
[2016-07-19] MEDS: FERROUS SULFATE 325 MG TABLET PO SCH (11:23)
--- NOTE | 2016-07-20 08:54 | Discharge Summary ---
DATE OF ADMISSION: July 13, 2016 DATE OF DISCHARGE: July 19, 2016 DIAGNOSES ON THIS HOSPITALIZATION: 1. Right lower lobe pneumonia. 2. Acute renal failure. 3. Atrial fibrillation. 4. Anemia. 5. GI bleed. 6. Anticoagulation. 7. Congestive heart failure. SUMMARIZATION OF ADMISSION HISTORY AND PHYSICAL: This is a 75-year-old male well known to myself whom I had seen in the senior living on the day of admission. He had become significantly more somnolent and less responsive. He had not been eating for the last few days. Labs were drawn that day and showed him to have a BUN of 126 and a creatinine of 3.68. He was also noted to be somewhat anemic. He complained of having some dark black stools. As a result, his Xarelto was held on this hospitalization. HOSPITAL COURSE: He was admitted. He was started on IV azithromycin and ceftriaxone. He was rehydrated. His renal labs normalized to a BUN of 20 and a creatinine of 1.0. No further dark stools were noted. He was discharged back to [facility] with continuation of all his regular medications but I did change his Lasix to 20 mg p.o. b.i.d. I restarted his Xarelto. We will check a BMP and a CBC on of this week. I encouraged p.o. intake. He likely would be a candidate also for speech therapy and occupational therapy for strengthening. CONDITION ON DISCHARGE: He was discharged to [facility] in markedly improved condition. LORENA
== END 2016-07-19 11:35 | disposition home or self-care (01) | DRG 377 ==
LOC: SOUTH 18:52
PROVIDERS: ADMIT Family Medicine; ATTEND Family Medicine
DX: K92.2 Gastrointestinal hemorrhage, unspecified (principal); J18.1 Lobar pneumonia, unspecified organism; N17.9 Acute kidney failure, unspecified; I48.91 Unspecified atrial fibrillation; Z79.01 Long term (current) use of anticoagulants; I50.9 Heart failure, unspecified; D63.1 Anemia in chronic kidney disease; R19.7 Diarrhea, unspecified
CPT/HCPCS: 36415; 71010; 71020; 80048; 80053; 82270; 83880; 85025; 85027; 87507; 94640; 94760; A9270; J0456; J0696; J1940; J7030; J7050; J7060; 99222; 99232; 99238; S1016